=== PATIENT | female | born 1985 | race Caucasian/White ===

== ENCOUNTER 2020-02-01 10:32 | Emergency (ER) | payer BC ==
--- OUTSIDE RECORDS SUMMARY | 2020-02-01 10:34 | XMS REPORT | Continuity of Care Document ---
:1985 Author Organization [facility] t Address [address] [place] [address] Care Team Providers Name Role Phone Unavailable Unavailable Unavailable Payers Payer Name Policy Type Policy Number Effective Date Expiration Date S ource Problems This patient has no known problems. Allergies, Adverse Reactions, Alerts Allergy Allergy Status Severity Reaction(s) Onset Inactive Treating Comm ents Source Name Type Date Date Clinician No Known DA Active [facility] [place] Medications This patient has no known medications. Procedures This patient has no known procedures. Results This patient has no known results.
--- NOTE | 2020-02-01 11:34 | RAD REPORT ---
EXAM DESCRIPTION: CT - Head Brain Wo Cont - 02/01/2020 11:13 am CLINICAL HISTORY: Headache;Dizziness Headache, drowsiness COMPARISON: Head Brain Wo Cont dated 05/15/2017 TECHNIQUE: All CT scans are performed using dose optimization technique as appropriate and may inclu de automated exposure control or mA/KV adjustment according to patient size. FINDINGS: No intracranial hemorrhage, hydrocephalus or extra-axial fluid collection.No areas of brai n edema or evidence of midline shift. The paranasal sinuses and mastoids are clear. The calvarium is intact. IMPRESSION: No acute intracranial abnormality.
[2020-02-01 12:16] LABS: Absolute Lymphocytes (CBC) 1.7 K/uL (0.7-4.9); Basophils % 0.8 % (0-1.3); Hematocrit 40.2 % (36.0-45.0); Lymphocytes % 26.7 % (15.3-44.8); MPV 7.5 fL (7.6-11.3); RBC Red Blood Cell Count 4.52 M/uL (3.86-4.86)
[2020-02-01 12:35] LABS: BUN Blood Urea Nitrogen 9 mg/dL (7-18); Bicarbonate 28 mmol/L (21-32); Glucose Level 90 mg/dL (74-106); Potassium 3.8 mmol/L (3.5-5.1); Sodium Level 142 mmol/L (136-145)
--- NOTE | 2020-02-01 13:01 | EDPHYS ---
Physician Documentation [facility] Name: Kathy Nunez Age: 34 yrs Sex: Female : 1985 Arrival Date: 02/01/2020 Time: 10:34 Bed 2 Private MD: ED Physician Sahra Lomas HPI: 01/31 13:57 This 34 yrs old Female presents to ER via Ambulatory with complaints of kb Dizziness, Near Syncope. 13:57 The patient presents with dizziness, lightheadedness. Onset: The symptoms/episode kb began/occurred 2 week(s) ago. Context: occurred at home. Modifying factors: The symptoms are alleviated by nothing, the symptoms are aggravated by nothing. Associated signs and symptoms: The patient has no apparent associated signs or symptoms. Severity of symptoms: At their worst the symptoms were moderate in the emergency department the symptoms have improved moderately. Patient's baseline: Neuro: alert and fully oriented, Motor: no deficits, Ambulation: walks without assistance, Speech: normal. The patient has not experienced similar symptoms in the past. The patient has been recently seen by a physician:. Pt reports she has had problems with anxiety since November. Was recently prescribed a new medication and since she has been taking it she has had episodes of dizziness and lightheadedness. Came in to make sure nothing else was causing the symptoms. Historical: - Allergies: 10:58 No Known Allergies; ph - Home Meds: 10:58 buspirone 5 mg Oral tab [Active]; oral control [Active]; ph - PSHx: 10:58 ; Tubal ligation; Tonsillectomy; oral sx; ph - Immunization history:: Adult Immunizations unknown. - Social history:: Smoking status: Patient denies any tobacco usage or history of. ROS: 13:03 Constitutional: Negative for fever, chills, and weight loss, Cardiovascular: Negative kb for chest pain, palpitations, and edema, Respiratory: Negative for shortness of breath, cough, wheezing, and pleuritic chest pain, Abdomen/GI: Negative for abdominal pain, nausea, vomiting, diarrhea, and constipation, MS/Extremity: Negative for injury and deformity, Skin: Negative for injury, rash, and discoloration. 13:03 Neuro: Positive for dizziness. Exam: 13:06 Constitutional: This is a well developed, well nourished patient who is awake, alert, kb and in no acute distress. Head/Face: Normocephalic, atraumatic. Eyes: Pupils equal round and reactive to light, extra-ocular motions intact. Lids and lashes normal. Conjunctiva and sclera are non-icteric and not injected. Cornea within normal limits. Periorbital areas with no swelling, redness, or edema. Chest/axilla: Normal chest wall appearance and motion. Nontender with no deformity. No lesions are appreciated. Cardiovascular: Regular rate and rhythm with a normal S1 and S2. No gallops, murmurs, or rubs. Normal PMI, no JVD. No pulse deficits. Respiratory: Lungs have equal breath sounds bilaterally, clear to auscultation and percussion. No rales, rhonchi or wheezes noted. No increased work of breathing, no retractions or nasal flaring. Abdomen/GI: Soft, non-tender, with normal bowel sounds. No distension or tympany. No guarding or rebound. No evidence of tenderness throughout. Skin: Warm, dry with normal turgor. Normal color with no rashes, no lesions, and no evidence of cellulitis. MS/ Extremity: Pulses equal, no cyanosis. Neurovascular intact. Full, normal range of motion. Neuro: Awake and alert, GCS 15, oriented to person, place, time, and situation. Cranial nerves II-XII grossly intact. Motor strength 5/5 in all extremities. Sensory grossly intact. Cerebellar exam normal. Normal gait. Vital Signs: 10:54 BP 119 / 84; Pulse 86; Resp 18; Temp 98.3; Pulse Ox 98% on R/A; Weight 67.59 kg; Height ph 5 ft. 4 in. (162.56 cm); Pain 7/10; 11:34 BP 106 / 72 Supine; Pulse 68; zb 11:37 BP 113 / 84 Sitting; Pulse 80; zb 11:42 BP 124 / 94 Standing; Pulse 108; zb 12:35 BP 106 / 70; Pulse 61; Resp 18; Pulse Ox 100% on R/A; ph 13:30 BP 104 / 78; Pulse 64; Resp 18; Pulse Ox 99% on R/A; zb 14:39 BP 103 / 86; Pulse 64; Resp 18; Temp 97.8; Pulse Ox 99% on R/A; zb 10:54 Body Mass Index 25.58 (67.59 kg, 162.56 cm) ph MDM: 10:50 Patient medically screened. kb 13:06 Data reviewed: vital signs, nurses notes. Data interpreted: Pulse oximetry: on room air kb is 100 %. Interpretation: normal. Counseling: I had a detailed discussion with the patient and/or guardian regarding: the historical points, exam findings, and any diagnostic results supporting the discharge/admit diagnosis, lab results, radiology results, the need for outpatient follow up, a family practitioner, to return to the emergency department if symptoms worsen or persist or if there are any questions or concerns that arise at home. 01/31 10:57 Order name: CBC with Diff; Complete Time: 12:18 kb 01/31 10:57 Order name: Basic Metabolic Panel; Complete Time: 12:37 kb 01/31 10:57 Order name: TSH; Complete Time: 12:37 kb 01/31 10:57 Order name: CT Head Brain wo Cont; Complete Time: 11:35 kb 01/31 13:32 Order name: Urine Dipstick--Ancillary (enter results); Complete Time: 13:45 bd 01/31 13:32 Order name: Urine --Ancillary (enter results); Complete Time: 13:45 bd 01/31 10:57 Order name: Orthostatics; Complete Time: 11:56 kb 01/31 10:57 Order name: Urine Dipstick-Ancillary (obtain specimen); Complete Time: 12:55 kb 01/31 10:57 Order name: Urine Test (obtain specimen); Complete Time: 12:55 kb 01/31 10:57 Order name: IV Start; Complete Time: 11:27 kb 01/31 11:40 Order name: Labs - recollect needed: recollect all tubes; Complete Time: 11:56 bd Administered Medications: 13:14 Drug: NS 0.9% 1000 ml Route: IV; Rate: 1000 ml; Site: right antecubital; zb 14:38 Follow up: Response: No adverse reaction; IV Status: Completed infusion; IV Intake: zb 1000ml Disposition: 15:36 Co-signature as Attending Physician, Sahra Lomas MD. ma2 Disposition: 02/01/20 13:00 Discharged to Home. Impression: Dizziness and giddiness. - Condition is Stable. - Discharge Instructions: Panic Attacks, Rccg-[id number], Dehydration, Adult, Yjuu-ov-Azvk, Dizziness, Yiax-vj-Qdjh. - Medication Reconciliation Form, Thank You Letter, Antibiotic Education, Prescription Opioid Use, Work release form form. - Follow up: Emergency Department; When: As needed; Reason: Worsening of condition. Follow up: Private Physician; When: 2 - 3 days; Reason: Recheck today's complaints, Continuance of care, Re-evaluation by your physician. Signatures: Dispatcher [employer] EDMS Romana Ledesma, SMOCKER-C SMOCKER-Ckb Maris Velasco Patricia, RN RN ph Sahra Lomas MD MD md2 Crys Alvarado RN RN zb Corrections: (The following items were deleted from the chart) 14:40 13:00 02/01/2020 13:00 Discharged to Home. Impression: Dizziness and giddiness. zb Condition is Stable. Forms are Medication Reconciliation Form, Thank You Letter, Antibiotic Education, Prescription Opioid Use. Follow up: Emergency Department; When: As needed; Reason: Worsening of condition. Follow up: Private Physician; When: 2 - 3 days; Reason: Recheck today's complaints, Continuance of care, Re-evaluation by your physician. kb
--- NOTE | 2020-02-01 13:01 | ER ---
Nurse's Notes [facility] Name: Kathy Nunez Age: 34 yrs Sex: Female : 1985 Arrival Date: 02/01/2020 Time: 10:34 Bed 2 Private MD: Diagnosis: Dizziness and giddiness Presentation: 01/31 10:54 Chief complaint: Patient states: Anxiety x 2 weeks, seen by PCP and placed on buspirone ph but feels that symptoms have worsened, also c/o dizziness, palpitations, headache, loss of appetite. Believes symptoms could be r/t control pill, states, " I was off of it for a few weeks and after I started it back is when all the symptoms started.". Coronavirus screen: Client denies travel out of the [place] in the last 14 days. At this time, the client does not indicate any symptoms associated with coronavirus-19. Ebola Screen: No symptoms or risks identified at this time. Initial Sepsis Screen: Does the patient meet any 2 criteria? No. Patient's initial sepsis screen is negative. Does the patient have a suspected source of infection? No. Patient's initial sepsis screen is negative. Risk Assessment: Do you want to hurt yourself or someone else? Patient reports no desire to harm self or others. Onset of symptoms was February 01, 2020. 10:54 Method Of Arrival: Ambulatory ph 10:54 Acuity: LINO 3 ph Historical: - Allergies: 10:58 No Known Allergies; ph - Home Meds: 10:58 buspirone 5 mg Oral tab [Active]; oral control [Active]; ph - PSHx: 10:58 ; Tubal ligation; Tonsillectomy; oral sx; ph - Immunization history:: Adult Immunizations unknown. - Social history:: Smoking status: Patient denies any tobacco usage or history of. Screenin:58 Abuse screen: Denies threats or abuse. Denies injuries from another. Nutritional ph screening: No deficits noted. Tuberculosis screening: No symptoms or risk factors identified. Fall Risk None identified. Assessment: 11:00 General: Appears in no apparent distress. comfortable, slender, well groomed, Behavior ph is calm, cooperative, appropriate for age, Denies fever, feeling ill. Pain: Complains of pain in forehead. Neuro: Level of Consciousness is awake, alert, obeys commands, Oriented to person, place, time, situation, Reports dizziness, headache frontal area. Cardiovascular: Reports fatigue, lightheadedness, palpitations, Denies chest pain, nausea, syncope, vomiting, Capillary refill < 3 seconds in bilateral fingers Patient's skin is warm and dry. Respiratory: Airway is patent Respiratory effort is even, unlabored, Respiratory pattern is regular, symmetrical. GI: No signs and/or symptoms were reported involving the gastrointestinal system. Derm: Skin is intact, is healthy with good turgor, Skin is pink, warm \\T\\ dry. 11:56 Reassessment: Patient appears in no apparent distress at this time. Patient and/or zb family updated on plan of care and expected duration. Pain level reassessed. Patient is alert, oriented x 3, equal unlabored respirations, skin warm/dry/pink. 12:56 Reassessment: Patient appears in no apparent distress at this time. Patient and/or ph family updated on plan of care and expected duration. Pain level reassessed. Patient is alert, oriented x 3, equal unlabored respirations, skin warm/dry/pink. 13:27 Reassessment: Patient appears in no apparent distress at this time. Patient and/or ph family updated on plan of care and expected duration. Pain level reassessed. Patient is alert, oriented x 3, equal unlabored respirations, skin warm/dry/pink. D/C pending completion of IV fluids. Vital Signs: 10:54 BP 119 / 84; Pulse 86; Resp 18; Temp 98.3; Pulse Ox 98% on R/A; Weight 67.59 kg; Height ph 5 ft. 4 in. (162.56 cm); Pain 7/10; 11:34 BP 106 / 72 Supine; Pulse 68; zb 11:37 BP 113 / 84 Sitting; Pulse 80; zb 11:42 BP 124 / 94 Standing; Pulse 108; zb 12:35 BP 106 / 70; Pulse 61; Resp 18; Pulse Ox 100% on R/A; ph 13:30 BP 104 / 78; Pulse 64; Resp 18; Pulse Ox 99% on R/A; zb 14:39 BP 103 / 86; Pulse 64; Resp 18; Temp 97.8; Pulse Ox 99% on R/A; zb 10:54 Body Mass Index 25.58 (67.59 kg, 162.56 cm) ph ED Course: 10:34 Patient arrived in ED. ds1 10:49 Romana Ledesma FNP-C [facility]. kb 10:49 Sahra Lomas MD is Attending Physician. kb 10:53 Crys Alvarado RN is Primary Nurse. zb 10:54 Laurie Bravo, GISEL is Primary Nurse. ph 10:57 Triage completed. ph 10:58 Arm band placed on Patient placed in an exam room, on a stretcher. ph 10:59 Patient has correct armband on for positive identification. Bed in low position. Call ph light in reach. Side rails up X 1. Pulse ox on. NIBP on. Door closed. Noise minimized. Warm blanket given. 11:13 CT Head Brain wo Cont In Process Unspecified. EDMS 11:26 Inserted saline lock: 20 gauge in right antecubital area, using aseptic technique. zb 14:40 No provider procedures requiring assistance completed. IV discontinued, intact, zb bleeding controlled, No redness/swelling at site. Pressure dressing applied. Administered Medications: 13:14 Drug: NS 0.9% 1000 ml Route: IV; Rate: 1000 ml; Site: right antecubital; zb 14:38 Follow up: Response: No adverse reaction; IV Status: Completed infusion; IV Intake: zb 1000ml Intake: 14:38 IV: 1000ml; Total: 1000ml. zb Outcome: 13:00 Discharge ordered by . kb 14:40 Discharged to home ambulatory. zb 14:40 Condition: good 14:40 Discharge instructions given to patient, Instructed on discharge instructions, follow up and referral plans. Demonstrated understanding of instructions, follow-up care. 14:40 Patient left the ED. zb Signatures: Dispatcher [employer] EDMS Romana Ledesma FNP-C FNP-Ckb Sanford, Demi ds1 Laurie Bravo RN RN Crys Alvarado RN RN zb
[2020-02-01] MEDS ORDERED: NA CHLORIDE 0.9% 1,000 ML ONE (13:19)
[2020-02-01 13:42] LABS: Urine Blood NEGATIVE (NEG); Urine Glucose NEGATIVE (NEG); Urine Protein NEGATIVE (NEG); Urine Specific Gravity 1.025 (1.005-1.030); Urine pH 7.5 (5.0-7.0)
[2020-02-01 14:57] VITALS: O2SAT 99
[2020-02-01 14:59] VITALS: BP 103/86; TEMP 97.8
== END 2020-02-01 14:40 | disposition home or self-care (01) ==
LOC: ER 10:32
DX: R42 Dizziness and giddiness (principal)
CPT/HCPCS: 85025; 80048; 36415; 81025; 84443; 81003; 70450; 96360; 99284; J7030

== ENCOUNTER 2021-02-01 15:06 | Emergency (ER) | payer BC ==
[2021-02-01 15:44] LABS: Urine Blood Negative (Negative); Urine Glucose Negative (Negative); Urine Protein Negative (Negative)
[2021-02-01 16:16] LABS: Absolute Lymphocytes (CBC) 1.4 K/uL (0.7-4.9); Basophils % 0.4 % (0-1.3); Lymphocytes % 13.6 % (15.3-44.8); MPV 6.9 fL (7.6-11.3); RBC Red Blood Cell Count 4.82 M/uL (3.86-4.86)
[2021-02-01 16:19] LABS: Barbiturates NEGATIVE (NEGATIVE); Benzodiazepines NEGATIVE (NEGATIVE); Cocaine NEGATIVE (NEGATIVE); METHAMPHETAM NEGATIVE (NEGATIVE); Methadone NEGATIVE (NEGATIVE); Opiates NEGATIVE (NEGATIVE); Phencyclidine NEGATIVE (NEGATIVE); THC Cannibis NEGATIVE (NEGATIVE)
[2021-02-01 16:29] LABS: ALT/SGPT 25 U/L (12-78); AST/SGOT 19 U/L (15-37); Albumin 4.3 g/dL (3.4-5.0); Alkaline Phosphatase 56 U/L (45-117); BUN Blood Urea Nitrogen 12 mg/dL (7-18); Bicarbonate 31 mmol/L (21-32); Bilirubin Direct 0.1 mg/dL (0-0.2); Bilirubin Total 0.4 mg/dL (0.2-1.0); Glucose Level 101 mg/dL (74-106); Protein, Total 7.6 g/dL (6.4-8.2); Sodium Level 140 mmol/L (136-145)
--- NOTE | 2021-02-01 16:42 | RAD REPORT ---
EXAM DESCRIPTION: CT - Head Brain Wo Cont - 02/01/2021 4:30 pm CLINICAL HISTORY: DIZZINESS COMPARISON: <Comparisons> TECHNIQUE: Axial 5 mm thick images of the head were obtained without IV contrast. All CT scans are performed using dose optimization technique as appropriate and may include automated exposure control or mA/KV adjustment according to patient size. FINDINGS: No intracranial hemorrhage, mass, edema or shift of mid-line structures. No acute infarcti on changes seen. No abnormal extra-axial fluid collections. Ventricles are normal. Physiologic calcif ications present. Mastoid air cells and visualized portions of the paranasal sinuses are clear. No acute bony findings. IMPRESSION: Negative non-contrast CT head examination.
--- NOTE | 2021-02-01 17:43 | EDPHYS ---
Physician Documentation [facility] Name: Kathy Nunez Age: 35 yrs Sex: Female : 1985 Arrival Date: 02/01/2021 Time: 15:08 Bed 19 Private MD: ED Physician Sahra Lomas HPI: 02/01 15:30 This 35 yrs old Female presents to ER via Wheelchair with complaints of kb Weakness, Anxiety. 15:30 The patient presents with dizziness, generalized weakness. Onset: The symptoms/episode kb began/occurred 2 week(s) ago. Context: occurred at home. Modifying factors: The symptoms are alleviated by nothing, the symptoms are aggravated by nothing. Associated signs and symptoms: Pertinent positives: confusion, syncope. Severity of symptoms: At their worst the symptoms were moderate in the emergency department the symptoms have improved. Patient's baseline: Neuro: alert and fully oriented, Motor: no deficits, Ambulation: walks without assistance, Speech: normal. The patient has not experienced similar symptoms in the past. The patient has been recently seen by a physician: Dr. Duggan yesterday, with similar presenting complaints, CT ordered and scheduled for next week. Pt states she has been having syncopal episodes, anxiety attacks, weakness, dizziness, and confusion intermittently for 2 weeks after taking zoloft. States she was taken off of the zoloft when the symptoms started and is now only taking klonopin as needed. States she has been on the klonopin PRN for a long time. Today pt had a bad panic attack and states she has been acting differently ("lost") since then. . Historical: - Allergies: 15:14 No Known Allergies; ll1 - Home Meds: 15:58 buspirone 5 mg Oral tab [Active]; ORAL CONTROL [Active]; jw6 - PMHx: 15:14 None; ll1 - PSHx: 15:14 section; Tonsillectomy; Adenoid excision; ll1 - Immunization history:: Client reports having NOT received the Covid vaccine. - Social history:: Smoking status: Patient denies any tobacco usage or history of. ROS: 15:28 Constitutional: Negative for fever, chills, and weight loss. kb 15:28 Neuro: Positive for dizziness, syncope, weakness. 15:28 Psych: Positive for anxiety, depression, Negative for drug dependence, alcohol dependence, auditory hallucinations, visual hallucinations, homicidal ideation, insomnia, suicide gesture, suicidal ideation. 15:28 All other systems are negative. Exam: 15:29 Constitutional: This is a well developed, well nourished patient who is awake, alert, kb and in no acute distress. Head/Face: Normocephalic, atraumatic. Eyes: Pupils equal round and reactive to light, extra-ocular motions intact. Lids and lashes normal. Conjunctiva and sclera are non-icteric and not injected. Cornea within normal limits. Periorbital areas with no swelling, redness, or edema. ENT: Moist Mucous membranes Cardiovascular: Regular rate and rhythm with a normal S1 and S2. No gallops, murmurs, or rubs. No pulse deficits. Respiratory: Respirations even and unlabored. No increased work of breathing, no retractions or nasal flaring. Skin: Warm, dry with normal turgor. Normal color. MS/ Extremity: Pulses equal, no cyanosis. Neurovascular intact. Full, normal range of motion. Neuro: Awake and alert, GCS 15, oriented to person, place, time, and situation. Moves all extremities. Normal gait. 15:29 Psych: Behavior/mood is pleasant, cooperative, Affect is flat, Oriented to person, place, time, Patient has no thoughts/intents to harm self or others. Judgement / Insight is normal. Memory is normal. Delusions/hallucinations are not present. 15:58 ECG was reviewed by the Attending Physician. kb Vital Signs: 15:11 BP 126 / 89; Pulse 87; Resp 17; Temp 98.0; Pulse Ox 100% ; Weight 69.85 kg; Height 5 ll1 ft. 4 in. (162.56 cm); Pain 0/10; 17:23 BP 115 / 70 Supine; Pulse 86; Pulse Ox 99% on R/A; jw6 17:23 BP 120 / 80 Sitting; Pulse 86; Pulse Ox 99% on R/A; jw6 17:23 BP 111 / 83 Standing; Pulse 110; Pulse Ox 99% on R/A; jw6 15:11 Body Mass Index 26.43 (69.85 kg, 162.56 cm) ll1 NIH Stroke Scale Scores: 15:29 NIHSS Score: 0 jw6 MDM: 15:15 Patient medically screened. kb 15:28 Data reviewed: vital signs, nurses notes. Data interpreted: Pulse oximetry: on room air kb is 100 %. Interpretation: normal. 15:35 ED course: Pt ambulated to restroom without assist, with steady gait. . kb 17:42 Counseling: I had a detailed discussion with the patient and/or guardian regarding: the kb historical points, exam findings, and any diagnostic results supporting the discharge/admit diagnosis, lab results, radiology results, the need for outpatient follow up, a neurologist, to return to the emergency department if symptoms worsen or persist or if there are any questions or concerns that arise at home. ED course: Pt educated to follow up with Dr Duggan to continue neuro evaluation that was started. . 02/01 15:23 Order name: Acetaminophen; Complete Time: 16:31 kb 02/01 15:23 Order name: Basic Metabolic Panel; Complete Time: 16:31 kb 02/01 15:23 Order name: CBC with Diff; Complete Time: 16:33 kb 02/01 15:23 Order name: ETOH Level; Complete Time: 16:31 kb 02/01 15:23 Order name: Hepatic Function; Complete Time: 16:31 kb 02/01 15:23 Order name: Urine Drug Screen; Complete Time: 16:23 kb 02/01 15:23 Order name: EKG; Complete Time: 15:24 kb 02/01 15:23 Order name: CT Head Brain wo Cont; Complete Time: 16:45 kb 02/01 15:45 Order name: Urine Dipstick-Ancillary; Complete Time: 15:46 EDMS 02/01 15:23 Order name: EKG - Nurse/Tech; Complete Time: 15:23 kb 02/01 15:23 Order name: IV Saline Lock; Complete Time: 15:56 kb 02/01 15:23 Order name: Labs collected and sent; Complete Time: 15:56 kb 02/01 15:23 Order name: Suicide Screening ([place]); Complete Time: 15:56 kb 02/01 15:23 Order name: Urine Dipstick-Ancillary (obtain specimen); Complete Time: 15:34 kb 02/01 15:23 Order name: Urine Test (obtain specimen); Complete Time: 15:34 kb 02/01 15:58 Order name: Orthostatics; Complete Time: 17:22 kb EC:58 Rate is 83 beats/min. Rhythm is regular. QRS [place] is Normal. IA interval is normal at kb 132 msec. QRS interval is normal at 72 msec. QT interval is normal at 390 msec. Administered Medications: 17:31 Drug: NS 0.9% 1000 ml Route: IV; Rate: 1000 ml; Site: right antecubital; jw6 Disposition Summary: 02/01/21 17:43 Discharge Ordered Location: Home kb Condition: Stable kb Diagnosis - Volume depletion, unspecified kb - Dizziness and giddiness kb - Anxiety disorder, unspecified kb Followup: kb - With: Emergency Department - When: As needed - Reason: Worsening of condition Followup: kb - With: Private Physician - When: 2 - 3 days - Reason: Recheck today's complaints, Continuance of care, Re-evaluation by your physician Discharge Instructions: - Discharge Summary Sheet kb - Syncope, Wlvm-ol-Pfxm kb - Panic Attack, Xnry-tj-Thut kb - Dehydration, Adult, Wsbb-tr-Wumj kb - Dizziness, Nyhn-nw-Wlht kb Forms: - Medication Reconciliation Form kb - Thank You Letter kb - Antibiotic Education kb - Prescription Opioid Use kb NIH Stroke Scale - NIH Stroke Score Date: 02/01/2021 Time: 15:29 Total Score = 0 1a. Level of Consciousness (LOC) - 0(Alert) 1b. Level of Consciousness (LOC) (Month \\T\\ Age) - 0(Both) 1c. LOC Commands (Open \\T\\ Closes Eyes/Route Salesman) - 0(Both) 2. Best Gaze (Lateral Gaze Paresis) - 0(Normal) 3. Visual Field Loss - 0(No visual loss) 4. Facial Palsy - 0(Normal) 5a. Left Arm: Motor (10-second hold) - 0(No drift) 5b. Right Arm: Motor (10-second hold) - 0(No drift) 6a. Left Leg: Motor (5-second hold - always test supine) - 0(No drift) 6b. Right Leg: Motor (5-second hold - always test supine) - 0(No drift) 7. Limb Ataxia (finger/nose \\T\\ heel/shirley - test with eyes open) - 0(Absent) 8. Sensory Loss (pinprick arms/legs/face) - 0(Normal) 9. Best Language: Aphasia (description/naming/reading) - 0(No aphasia) 10. Dysarthria (speech clarity - read or repeat words) - 0(Normal) 11. Extinction and Inattention (visual/tactile/auditory/spatial/personal) - 0(No abnormality) Initials: jw6 Addendum: 02/04/2021 22:59 Co-signature as Attending Physician, Sahra Lomas MD. ma2 Signatures: Dispatcher [employer] EDRomana Woodson, JACKELIN-C HANDLE MAKER-Sahra Govea MD MD ma2 Josué Holliday RN RN 1 Che Khan jw6 Corrections: (The following items were deleted from the chart) 02/01 15:36 15:30 Pt states she has been having syncopal episodes, anxiety attacks, kb weakness, dizziness, and confusion intermittently for 2 weeks after taking zoloft. States she was taken off of the zoloft when the symptoms started and is now only taking klonopin as needed. States she has been on the klonopin PRN for a long time. . kb
--- NOTE | 2021-02-01 17:43 | ER ---
Nurse's Notes [facility] Name: Kathy Nunez Age: 35 yrs Sex: Female : 1985 Arrival Date: 02/01/2021 Time: 15:08 Bed 19 Private MD: Diagnosis: Volume depletion, unspecified;Dizziness and giddiness;Anxiety disorder, unspecified Presentation: 02/01 15:11 Chief complaint: Patient states: Having anxiety/depression, syncope events, legs numb, ll1 weakness off/on for 2 weeks. Seeing doctor for this. made her take a Klonopin DIPLOMATIC COURIER. Stopped zoloft because of side effects. States she wanted to jump out of the moving vehicle to hurt herself, earlier when she was panicking. Coronavirus screen: Vaccine status: Patient reports being unvaccinated. Client denies travel out of the [place] in the last 14 days. At this time, the client does not indicate any symptoms associated with coronavirus-19. Ebola Screen: Patient denies travel to an Ebola-affected area in the 21 days before illness onset. No acute neurological deficit is noted. Initial Sepsis Screen: Does the patient meet any 2 criteria? No. Patient's initial sepsis screen is negative. Does the patient have a suspected source of infection? No. Patient's initial sepsis screen is negative. Risk Assessment: Do you want to hurt yourself or someone else? Patient reports no desire to harm self or others. Onset of symptoms was January 18, 2021. 15:11 Method Of Arrival: Wheelchair ll1 15:11 Acuity: LINO 3 ll1 15:57 Pre-hospital glucose is not applicable to this patient. jw6 Triage Assessment: 15:27 The onset of the patients symptoms was February 01, 2021 at 12:00. General: Appears jw6 comfortable, Behavior is flat, quiet. Pain: Denies pain. EENT: No deficits noted. Neuro: Reports weakness. Cardiovascular: No deficits noted. Respiratory: No deficits noted. GI: No deficits noted. : No deficits noted. Derm: No deficits noted. Musculoskeletal: No deficits noted. Stroke Activation: Symptom onset > 6 hours Physician: Stroke Attending; Name: ; Notified At: ; Arrived At: Physician: Chief Stroke Resident; Name: ; Notified At: ; Arrived At: Physician: Stroke Resident; Name: ; Notified At: ; Arrived At: Physician: ED Attending; Name: ; Notified At: ; Arrived At: Physician: ED Resident; Name: ; Notified At: ; Arrived At: Historical: - Allergies: 15:14 No Known Allergies; ll1 - Home Meds: 15:58 buspirone 5 mg Oral tab [Active]; ORAL CONTROL [Active]; jw6 - PMHx: 15:14 None; ll1 - PSHx: 15:14 section; Tonsillectomy; Adenoid excision; ll1 - Immunization history:: Client reports having NOT received the Covid vaccine. - Social history:: Smoking status: Patient denies any tobacco usage or history of. Screenin:29 Abuse screen: Denies threats or abuse. Denies injuries from another. Nutritional jw6 screening: No deficits noted. Tuberculosis screening: No symptoms or risk factors identified. Fall Risk IV access (20 points). Assessment: 15:29 VAN Scoring: Arm Drift: Patients demonstrates NO arm weakness. Patient is VAN Negative. jw6 The patient passed the bedside swallow screening. Oral medications may be given as ordered. Contact Physician for further diet orders. 15:57 The patient has not been NPO before screening. The patient is alert, and able to follow jw6 commands. The patient does not exhibit slurred or garbled speech. The patient is not exhibiting difficulty speaking. The patient does not exhibit difficulty understanding words. The patient is able to swallow own secretions with no drooling or need for suction. Patient tolerated one teaspoon of water. No drooling, immediate coughing, gurgling, or clearing of the throat was noted. The patient tolerated 90mL of water. No drooling, immediate coughing, gurgling, or clearing of the throat was noted. Vital Signs: 15:11 BP 126 / 89; Pulse 87; Resp 17; Temp 98.0; Pulse Ox 100% ; Weight 69.85 kg; Height 5 ll1 ft. 4 in. (162.56 cm); Pain 0/10; 17:23 BP 115 / 70 Supine; Pulse 86; Pulse Ox 99% on R/A; jw6 17:23 BP 120 / 80 Sitting; Pulse 86; Pulse Ox 99% on R/A; jw6 17:23 BP 111 / 83 Standing; Pulse 110; Pulse Ox 99% on R/A; jw6 15:11 Body Mass Index 26.43 (69.85 kg, 162.56 cm) ll1 NIH Stroke Scale Scores: 15:29 NIHSS Score: 0 [facility] ED Course: 15:08 Patient arrived in ED. am2 15:14 Triage completed. ll1 15:14 Arm band placed on Patient placed in an exam room, on a stretcher. 1 15:15 [facility] Led[facility]C [facility] kb 15:15 Sahra Lomas MD is Attending Physician. kb 15:26 Che Khan is Primary Nurse. jw6 15:29 Patient has correct armband on for positive identification. Call light in reach. Side jw6 rails up X 1. 15:29 No provider procedures requiring assistance completed. jw6 15:34 Urine collected: clean catch specimen, clear, EKG done. [facility] 15:45 Placed in gown. Bed in low position. Adult w/ patient. Warm blanket given. Pulse ox on. 5 NIBP on. 15:45 Urine Drug Screen Sent. [facility] 15:56 Inserted saline lock: 20 gauge in left antecubital area, using aseptic technique. 6 16:30 CT Head Brain wo Cont In Process Unspecified. EDMS 18:03 IV discontinued, intact, bleeding controlled, No redness/swelling at site. Pressure 6 dressing applied. Administered Medications: 17:31 Drug: NS 0.9% 1000 ml Route: IV; Rate: 1000 ml; Site: right antecubital; [facility] Outcome: 17:43 Discharge ordered by . kb 18:03 Discharged to home ambulatory. [facility] 18:03 Condition: good 18:03 Discharge instructions given to patient, family, Instructed on discharge instructions, Demonstrated understanding of instructions. 18:04 Patient left the ED. jw6 NIH Stroke Scale - NIH Stroke Score Date: 02/01/2021 Time: 15:29 Total Score = 0 1a. Level of Consciousness (LOC) - 0(Alert) 1b. Level of Consciousness (LOC) (Month \T\ Age) - 0(Both) 1c. LOC Commands (Open \T\ Closes Eyes/Yarn Bleaching Machine Operator) - 0(Both) 2. Best Gaze (Lateral Gaze Paresis) - 0(Normal) 3. Visual Field Loss - 0(No visual loss) 4. Facial Palsy - 0(Normal) 5a. Left Arm: Motor (10-second hold) - 0(No drift) 5b. Right Arm: Motor (10-second hold) - 0(No drift) 6a. Left Leg: Motor (5-second hold - always test supine) - 0(No drift) 6b. Right Leg: Motor (5-second hold - always test supine) - 0(No drift) 7. Limb Ataxia (finger/nose \T\ heel/shirley - test with eyes open) - 0(Absent) 8. Sensory Loss (pinprick arms/legs/face) - 0(Normal) 9. Best Language: Aphasia (description/naming/reading) - 0(No aphasia) 10. Dysarthria (speech clarity - read or repeat words) - 0(Normal) 11. Extinction and Inattention (visual/tactile/auditory/spatial/personal) - 0(No abnormality) Initials: jw6 Signatures: Dispatcher [employer] EDMS Romana Ledesma, SILVER DESIGNER-C SILVER DESIGNER-Juliann Crisostomo 5 Percy, Marie 2 Josué Holliday RN RN [email or web address] Che Khan jw6 Corrections: (The following items were deleted from the chart) 15:15 15:11 n/a ll1 ll1 15:20 15:11 Chief complaint: Patient states: Having anxiety/depression, syncope ll1 events, legs numb, weakness off/on for 2 weeks. Seeing doctor for this. made her take a Klonopin DIPLOMATIC COURIER. Stopped zoloft because of side effects. ll1 17:23 15:57 Verified jw6 jw6
[2021-02-01] MEDS ORDERED: NA CHLORIDE 0.9% 1,000 ML ONE (17:55)
[2021-02-01 18:36] VITALS: BP 111/83; O2SAT 99
[2021-02-01 18:37] VITALS: TEMP 98
== END 2021-02-01 18:04 | disposition home or self-care (01) ==
LOC: ER 15:06
DX: E86.9 Volume depletion, unspecified (principal); F41.9 Anxiety disorder, unspecified
CPT/HCPCS: 93005; 85025; 80048; 36415; 80320; 80329; 80076; 81003; 80307; 70450; 99284; J7030

== ENCOUNTER 2021-02-20 02:39 | Emergency (ER) | payer BC ==
--- OUTSIDE RECORDS SUMMARY | 2021-02-20 02:42 | XMS REPORT | Continuity of Care Document ---
:1985 Author Organization [facility] t Address [address] [place] [address] Care Team Providers Name Role Phone Unavailable Unavailable Unavailable Payers Payer Name Policy Type Policy Number Effective Date Expiration Date S ource Problems This patient has no known problems. Allergies, Adverse Reactions, Alerts Allergy Allergy Status Severity Reaction(s) Onset Inactive Treating Comm ents Source Name Type Date Date Clinician No Known DA Active U 2015-0 [facility] [place] Medications This patient has no known medications. Procedures This patient has no known procedures. Results This patient has no known results.
[2021-02-20] MEDS ORDERED: NA CHLORIDE 0.9% 1,000 ML ONE (03:13)
[2021-02-20 03:17] LABS: Absolute Lymphocytes (CBC) 2.7 K/uL (0.7-4.9); Basophils % 1.5 % (0-1.3); Hematocrit 38.6 % (36.0-45.0); Lymphocytes % 36.9 % (15.3-44.8); MPV 6.9 fL (7.6-11.3); RBC Red Blood Cell Count 4.33 M/uL (3.86-4.86)
[2021-02-20 03:21] LABS: Protime INR 0.88
[2021-02-20 03:29] LABS: ALT/SGPT 27 U/L (12-78); AST/SGOT 18 U/L (15-37); Albumin 3.8 g/dL (3.4-5.0); Alkaline Phosphatase 52 U/L (45-117); BUN Blood Urea Nitrogen 10 mg/dL (7-18); Bicarbonate 28 mmol/L (21-32); Bilirubin Direct 0.1 mg/dL (0-0.2); Bilirubin Total 0.5 mg/dL (0.2-1.0); Glucose Level 96 mg/dL (74-106); Sodium Level 141 mmol/L (136-145)
[2021-02-20 03:34] LABS: Urine Blood Negative (Negative); Urine Glucose Negative (Negative); Urine Protein Negative (Negative); Urine Specific Gravity >=1.030 (1.005-1.030)
--- NOTE | 2021-02-20 03:41 | EDPHYS ---
Physician Documentation [facility] Name: Kathy Nunez Age: 35 yrs Sex: Female : 1985 Arrival Date: 02/20/2021 Time: 02:40 Bed 16 Private MD: LIDA Physician Luis Serrano HPI: 02/20 02:55 This 35 yrs old Female presents to ER via EMS with complaints of weakness, nitza insomnia on new meds. 02:55 The patient's problem is reported as weakness, in the right lower extremity, in the nitza left lower extremity. Onset: The symptoms/episode began/occurred today. Duration: The episode is continuous. Context: the episode(s) was witnessed, by family. The symptoms are alleviated by nothing. The symptoms are aggravated by nothing. weak, legs numb, on new and increased med. Associated signs and symptoms: Pertinent positives: lightheadedness. Severity of symptoms: At their worst the symptoms were mild in the emergency department the symptoms are unchanged. Patient's baseline: Neuro: alert and fully oriented. Historical: - Allergies: 02:53 No Known Allergies; kc4 - Home Meds: 02:53 prestique 50 mg daily for Psychiatric Therapy [Active]; Rexulti 0.5 mg oral tab 1 tab kc4 once daily for depression treatment adjunct [Active]; Klonopin 0.5 mg Oral tab 1 tab 3 times per day for panic disorder [Active]; Ambien 5 mg Oral tab 1 tab once daily for sleep-onset insomnia [Active]; - PMHx: 02:53 Depressive disorder; Anxiety; kc4 - PSHx: 02:53 Tonsillectomy; section; Adenoid excision; kc4 - Immunization history:: Adult Immunizations up to date, Client reports having NOT received the Covid vaccine. Last tetanus immunization: up to date Pneumococcal vaccine status is unknown, Flu vaccine is not up to date. Hepatitis A vaccine is up to date Hepatitis B vaccine is up to date Meningococcal vaccine is up to date. - Social history:: Smoking status: Patient denies any tobacco usage or history of. Patient/guardian denies using alcohol, street drugs, IV drugs, over the counter diet medications, tobacco products. - Family history:: not pertinent. ROS: 02:55 Constitutional: Negative for fever, chills, and weight loss, Eyes: Negative for injury, nitza pain, redness, and discharge, ENT: Negative for injury, pain, and discharge, Neck: Negative for injury, pain, and swelling, Cardiovascular: Negative for chest pain, palpitations, and edema, Respiratory: Negative for shortness of breath, cough, wheezing, and pleuritic chest pain, Abdomen/GI: Negative for abdominal pain, nausea, vomiting, diarrhea, and constipation, Back: Negative for injury and pain, : Negative for injury, bleeding, discharge, and swelling, MS/Extremity: Negative for injury and deformity, Skin: Negative for injury, rash, and discoloration, Psych: Negative for depression, anxiety, suicide ideation, homicidal ideation, and hallucinations, Allergy/Immunology: Negative for hives, rash, and allergies, Endocrine: Negative for neck swelling, polydipsia, polyuria, polyphagia, and marked weight changes, Hematologic/Lymphatic: Negative for swollen nodes, abnormal bleeding, and unusual bruising. 02:55 Neuro: Positive for numbness, weakness. Exam: 02:55 Constitutional: This is a well developed, well nourished patient who is awake, alert, nitza and in no acute distress. Head/Face: Normocephalic, atraumatic. Eyes: Pupils equal round and reactive to light, extra-ocular motions intact. Lids and lashes normal. Conjunctiva and sclera are non-icteric and not injected. Cornea within normal limits. Periorbital areas with no swelling, redness, or edema. ENT: Nares patent. No nasal discharge, no septal abnormalities noted. Tympanic membranes are normal and external auditory canals are clear. Oropharynx with no redness, swelling, or masses, exudates, or evidence of obstruction, uvula midline. Mucous membranes moist. Neck: Trachea midline, no thyromegaly or masses palpated, and no cervical lymphadenopathy. Supple, full range of motion without nuchal rigidity, or vertebral point tenderness. No Meningismus. Chest/axilla: Normal chest wall appearance and motion. Nontender with no deformity. No lesions are appreciated. Cardiovascular: Regular rate and rhythm with a normal S1 and S2. No gallops, murmurs, or rubs. Normal PMI, no JVD. No pulse deficits. Respiratory: Lungs have equal breath sounds bilaterally, clear to auscultation and percussion. No rales, rhonchi or wheezes noted. No increased work of breathing, no retractions or nasal flaring. Abdomen/GI: Soft, non-tender, with normal bowel sounds. No distension or tympany. No guarding or rebound. No evidence of tenderness throughout. Back: No spinal tenderness. No costovertebral tenderness. Full range of motion. Female : Normal external genitalia. Skin: Warm, dry with normal turgor. Normal color with no rashes, no lesions, and no evidence of cellulitis. MS/ Extremity: Pulses equal, no cyanosis. Neurovascular intact. Full, normal range of motion. Neuro: Awake and alert, GCS 15, oriented to person, place, time, and situation. Cranial nerves II-XII grossly intact. Motor strength 5/5 in all extremities. Sensory grossly intact. Cerebellar exam normal. Normal gait. Psych: Awake, alert, with orientation to person, place and time. Behavior, mood, and affect are within normal limits. 02:55 ECG was reviewed by the Attending Physician. Vital Signs: 02:47 BP 107 / 82; Pulse 84; Resp 16; Temp 98.8(O); Pulse Ox 98% on R/A; Pain 0/10; kc4 03:45 BP 115 / 79 Supine; Pulse 88; Resp 18; Pulse Ox 99% on R/A; kc4 03:46 BP 117 / 80 Sitting; Pulse 84; Resp 18; Pulse Ox 100% on R/A; kc4 03:48 BP 118 / 81 Standing; Pulse 88; Resp 18; Pulse Ox 100% on R/A; kc4 MDM: 02:40 Patient medically screened. nitza 03:04 Differential diagnosis: metabolic disorder, drug effects. Differential Diagnosis nitza altered mental status. Data reviewed: vital signs, nurses notes, lab test result(s), EKG, radiologic studies. Data interpreted: bus driver/monitor: rate is 84 beats/min, rhythm is regular, Pulse oximetry: on room air. Test interpretation: by ED physician or midlevel provider: ECG. Counseling: I had a detailed discussion with the patient and/or guardian regarding: the historical points, exam findings, and any diagnostic results supporting the discharge/admit diagnosis, lab results, the need for further work-up and treatment in the hospital. 02/20 02:50 Order name: Acetaminophen nitza 02/20 02:50 Order name: Basic Metabolic Panel; Complete Time: 03:40 nitza 11/17 02:50 Order name: CBC with Diff; Complete Time: 03:40 [facility] 02/20 02:50 Order name: ETOH Level; Complete Time: 03:40 [facility] 02/20 02:50 Order name: Hepatic Function; Complete Time: 03:40 [facility] 02/20 02:50 Order name: PT-INR; Complete Time: 03:40 [facility] 02/20 02:50 Order name: Ptt, Activated; Complete Time: 03:40 [facility] 02/20 02:50 Order name: Salicylate; Complete Time: 03:40 [facility] 02/20 02:50 Order name: Urine Drug Screen [facility] 02/20 02:50 Order name: Acetaminophen Level; Complete Time: 03:40 EDMS 02/20 03:34 Order name: Urine Dipstick-Ancillary; Complete Time: 03:40 EDND 02/20 03:34 Order name: Urine --Ancillary (enter results) cs9 02/20 02:50 Order name: EKG; Complete Time: 02:51 [facility] 02/20 02:50 Order name: EKG - Nurse/Tech; Complete Time: 03:34 [facility] 02/20 02:50 Order name: IV Saline Lock; Complete Time: 03:13 [facility] 02/20 02:50 Order name: Labs collected and sent; Complete Time: 03:13 [facility] 02/20 02:50 Order name: Suicide Screening ([place]); Complete Time: 03:39 [facility] 02/20 02:50 Order name: Urine Dipstick-Ancillary (obtain specimen); Complete Time: 03:35 [facility] 02/20 02:50 Order name: Urine Test (obtain specimen); Complete Time: 03:35 [facility] 02/20 03:49 Order name: Orthostatics; Complete Time: 03:52 [facility] EC:55 Rate is 70 beats/min. Rhythm is regular. QRS [place] is Normal. MO interval is normal. QRS nitza interval is normal. QT interval is normal. No Q waves. T waves are Normal. No ST changes noted. Clinical impression: NSR w/ Non-specific ST/T Changes and No evidence of ischemia. Interpreted by me. Reviewed by me. Administered Medications: 03:34 Drug: NS 0.9% 1000 ml Route: IV; Rate: 1 bolus; Site: right antecubital; kc4 04:09 Follow up: Response: No adverse reaction; IV Status: Completed infusion; IV Intake: kc4 300ml 04:07 Drug: Restoril (temazepam) 15 mg Route: PO; kc4 04:09 Follow up: Response: No adverse reaction kc4 Point of Care Testin:53 BS per EMS 98 kc4 Ranges: Critical Glucose Levels:Adult <50 mg/dl or >400 mg/dl <40 mg/dl or >180 mg/dl Disposition Summary: 02/20/21 03:40 Discharge Ordered Location: Home nitza Problem: new nitza Symptoms: have improved nitza Condition: Stable nitza Diagnosis - Major depressive disorder, recurrent, mild nitza - Adverse effect of unspecified drugs, medicaments and biological substances, initial nitza encounter Followup: nitza - With: Private Physician - When: 2 - 3 days - Reason: Recheck today's complaints, Continuance of care, Re-evaluation by your physician Followup: nitza - With: - When: 1 - 2 days - Reason: Recheck today's complaints, Continuance of care, Re-evaluation by your physician Discharge Instructions: - Discharge Summary Sheet nitza - Persistent Depressive Disorder, Adult, [id number] nitza - Managing Depression, Adult nitza Forms: - Medication Reconciliation Form nitza - Thank You Letter nitza - Antibiotic Education nitza - Prescription Opioid Use [facility] Signatures: Dispatcher [employer] EDLuis Meyer MD MD cha Chuman, Kourtney kc4
--- NOTE | 2021-02-20 03:41 | ER ---
Nurse's Notes [facility] Name: Kathy Nunez Age: 35 yrs Sex: Female : 1985 Arrival Date: 02/20/2021 Time: 02:40 Bed 16 Private MD: Diagnosis: Major depressive disorder, recurrent, mild;Adverse effect of unspecified drugs, medicaments and biological substances, initial encounter Presentation: 02/20 02:47 Chief complaint: Patient states: Pt has a change in her dose of psych med Prestique two kc4 days ago. pt woke up at 0130 this morning to go to bathroom and felt numbness, tingling and weakness in her lower extremities. No N/V. pt was able to ambulate from EMS stretchers to er stretcher without any assistance. Coronavirus screen: Vaccine status: Patient reports being unvaccinated. At this time, the client does not indicate any symptoms associated with coronavirus-19. Ebola Screen: Patient negative for fever greater than or equal to 101.5 degrees Fahrenheit, and additional compatible Ebola Virus Disease symptoms Patient denies exposure to infectious person. Patient denies travel to an Ebola-affected area in the 21 days before illness onset. No symptoms or risks identified at this time. Initial Sepsis Screen: Does the patient meet any 2 criteria? No. Patient's initial sepsis screen is negative. Does the patient have a suspected source of infection? No. Patient's initial sepsis screen is negative. Risk Assessment: Do you want to hurt yourself or someone else? Patient reports no desire to harm self or others. Onset of symptoms. 02:47 Method Of Arrival: EMS kc4 02:47 Acuity: LINO 3 kc4 Triage Assessment: 02:53 General: Appears uncomfortable, slender, well groomed, Behavior is calm, cooperative, kc4 appropriate for age, Denies fever, feeling ill, chills. Pain: Denies pain. EENT: No deficits noted. No signs and/or symptoms were reported regarding the EENT system. Neuro: No deficits noted. Level of Consciousness is awake, alert, obeys commands, Oriented to person, place, time, situation, Appropriate for age Keeper Helper are equal bilaterally Moves all extremities. Gait is shuffling, Speech is normal, Facial symmetry appears normal, Pupils are dilated, Reports numbness in right leg and left leg since 0130 am paresthesias in right leg and left leg since 0130am weakness in right leg and left leg since 0130 am. Cardiovascular: No deficits noted. Respiratory: No deficits noted. GI: No deficits noted. No signs and/or symptoms were reported involving the gastrointestinal system. : No deficits noted. No signs and/or symptoms were reported regarding the genitourinary system. Derm: No deficits noted. No signs and/or symptoms reported regarding the dermatologic system. Musculoskeletal: Range of motion: intact in all extremities, Reports weakness in right leg and left leg numbness in right leg and left leg pt able to ambulate without an assistance. however has a shuffling gait. Historical: - Allergies: 02:53 No Known Allergies; kc4 - Home Meds: :53 prestique 50 mg daily for Psychiatric Therapy [Active]; Rexulti 0.5 mg oral tab 1 tab kc4 once daily for depression treatment adjunct [Active]; Klonopin 0.5 mg Oral tab 1 tab 3 times per day for panic disorder [Active]; Ambien 5 mg Oral tab 1 tab once daily for sleep-onset insomnia [Active]; - PMHx: 02:53 Depressive disorder; Anxiety; kc4 - PSHx: 02:53 Tonsillectomy; section; Adenoid excision; kc4 - Immunization history:: Adult Immunizations up to date, Client reports having NOT received the Covid vaccine. Last tetanus immunization: up to date Pneumococcal vaccine status is unknown, Flu vaccine is not up to date. Hepatitis A vaccine is up to date Hepatitis B vaccine is up to date Meningococcal vaccine is up to date. - Social history:: Smoking status: Patient denies any tobacco usage or history of. Patient/guardian denies using alcohol, street drugs, IV drugs, over the counter diet medications, tobacco products. - Family history:: not pertinent. Screenin:42 Abuse screen: Denies threats or abuse. Denies injuries from another. Nutritional kc4 screening: No deficits noted. On no prescribed diet Difficulty chewing/swallowing? No. Fall Risk None identified. No fall in past 12 months (0 pts). No secondary diagnosis (0 pts). IV access (20 points). Ambulatory Aid- None/Bed Rest/Nurse Assist (0 pts). Gait- Normal/Bed Rest/Wheelchair (0 pts) Mental Status- Oriented to own ability (0 pts). Total Crowe Fall Scale indicates No Risk (0-24 pts). 04:08 Tuberculosis screening: No symptoms or risk factors identified. Never had TB. Possible kc4 symptoms: None Risk factors: None. Assessment: 03:40 Reassessment: See Triage . kc4 Psych: 03:37 [place] Suicide Severity Screening: In the past month, have you wished you were kc4 or wished you could go to sleep and not wake up? Patient responds "No." "In the past month, have you actually had any thoughts of killing yourself?" Patient responds "no." "In your lifetime, have you ever done anything, started to do anything, or prepared to do anything to end your life?" Patient responds "no.". Subjective: Patient's mood is flat Delusions are denied, Hallucinations are denied Having thoughts of homicide. Denies plan. No HI thoughts. Objective: Patient is cooperative, Speech is normal, Affect is flat. Interventions: Patient placed in hospital gown. Searched person for dangerous items. Urine collected and sent for urine drug test. Safety Checks: Door is open. Visitors are present. Pt denies substance abuse. Commitment: Patient will be a voluntary commitment. Vital Signs: 02:47 BP 107 / 82; Pulse 84; Resp 16; Temp 98.8(O); Pulse Ox 98% on R/A; Pain 0/10; kc4 03:45 BP 115 / 79 Supine; Pulse 88; Resp 18; Pulse Ox 99% on R/A; kc4 03:46 BP 117 / 80 Sitting; Pulse 84; Resp 18; Pulse Ox 100% on R/A; kc4 03:48 BP 118 / 81 Standing; Pulse 88; Resp 18; Pulse Ox 100% on R/A; kc4 ED Course: 02:40 Patient arrived in ED. [facility] 02:40 Luis Serrano MD is Attending Physician. [facility] 02:47 Tiesha Grey is Primary Nurse. kc4 02:53 Triage completed. kc4 02:53 Arm band placed on left wrist. Patient placed on a stretcher, on hall monitor, on kc4 pulse oximetry. 03:05 Inserted saline lock: 20 gauge in right antecubital area, using aseptic technique. kc4 Blood collected. 03:13 Acetaminophen Level Sent. kc4 03:13 Acetaminophen Sent. kc4 03:13 Basic Metabolic Panel Sent. kc4 03:13 CBC with Diff Sent. kc4 03:13 ETOH Level Sent. kc4 03:13 Hepatic Function Sent. kc4 03:13 PT-INR Sent. kc4 03:13 Ptt, Activated Sent. kc4 03:13 Salicylate Sent. kc4 03:35 Urine Drug Screen Sent. kc4 03:39 Urine --Ancillary (enter results) Sent. kc4 03:39 Urine Drug Screen Sent. kc4 03:40 Dann Pierre MD is Referral Physician. [facility] 03:41 Patient has correct armband on for positive identification. Placed in gown. Bed in low kc4 position. Call light in reach. Side rails up X 1. at bs. media monitor on. Pulse ox on. NIBP on. Lights dimmed. Warm blanket given. Pillow given. 03:41 No provider procedures requiring assistance completed. kc4 04:09 IV discontinued, intact, bleeding controlled, No redness/swelling at site. Pressure kc4 dressing applied. Administered Medications: 03:34 Drug: NS 0.9% 1000 ml Route: IV; Rate: 1 bolus; Site: right antecubital; kc4 04:09 Follow up: Response: No adverse reaction; IV Status: Completed infusion; IV Intake: kc4 300ml 04:07 Drug: Restoril (temazepam) 15 mg Route: PO; kc4 04:09 Follow up: Response: No adverse reaction kc4 Point of Care Testin:53 BS per EMS 98 kc4 Ranges: Intake: 04:09 IV: 300ml; Total: 300ml. kc4 Outcome: 03:40 Discharge ordered by . nitza 04:08 Discharged to home via wheelchair. kc4 04:08 Condition: stable 04:08 Discharge instructions given to patient, significant other, Instructed on discharge instructions, follow up and referral plans. Demonstrated understanding of instructions, follow-up care. 04:10 Patient left the ED. kc4 Signatures: Luis Serrano MD MD cha Chuman, Kourtney kc4
[2021-02-20] MEDS ORDERED: TEMAZEPAM 15 MG CAP ONE (03:54)
[2021-02-20 04:05] LABS: Barbiturates NEGATIVE (NEGATIVE); Benzodiazepines NEGATIVE (NEGATIVE); Cocaine NEGATIVE (NEGATIVE); METHAMPHETAM NEGATIVE (NEGATIVE); Methadone NEGATIVE (NEGATIVE); Opiates NEGATIVE (NEGATIVE); Phencyclidine NEGATIVE (NEGATIVE); THC Cannibis POSITIVE (NEGATIVE)
[2021-02-20 04:19] VITALS: TEMP 98.8
[2021-02-20 04:22] VITALS: O2SAT 100
[2021-02-20 04:24] VITALS: BP 118/81
--- NOTE | 2021-02-20 16:57 | EKG ---
Test Date: 2021-02-20 Test Time: 03:28:13 Hand Outside Cutter: SEGUN MEASUREMENT RESULTS: Intervals: Rate: 71 TN: 134 QRSD: 74 QT: 412 QTc: 447 Venus: P: 41 TN: 134 QRS: 51 T: 58 INTERPRETIVE STATEMENTS: Normal sinus rhythm Normal ECG Compared to ECG 02/01/2021 15:49:50 No significant changes Electronically Signed On 02-20-21 16:56:57 PLAN REP by Pete Aj
== END 2021-02-20 04:10 | disposition home or self-care (01) ==
LOC: ER 02:39
DX: G47.00 Insomnia, unspecified (principal); T43.95XA Adverse effect of unspecified psychotropic drug, initial encounter; Y92.009 Unspecified place in unspecified non-institutional (private) residence as the place of occurrence of the external cause; F33.9 Major depressive disorder, recurrent, unspecified
CPT/HCPCS: 93005; 85025; 80048; 36415; 80320; 80329 ×2; 81025; 85610; 80076; 85730; 81003; 80307; 96360; 99285; J7030